=== PATIENT | male | born 1980 | race Caucasian/White ===

== ENCOUNTER 2016-10-25 22:20 | Emergency (ER) | payer BC ==
[2016-10-25] MEDS ORDERED: LORazepam 1 MG Tab PO ONE (22:40)
[2016-10-25 22:42] VITALS: BP 158/90
[2016-10-25] MEDS ORDERED: Sodium Chloride 0.9% 1,000 ML IV SCH (22:45)
--- NOTE | 2016-10-25 22:55 | EDM.PDOC ---
ED HPI SEIZURE COMPLAINT - General Chief Complaint: Neurological Problem Stated Complaint: [facility] Time Seen by Provider: 10/25/16 22:43 Source of Information: Reports: Patient History Limitations: Reports: No limitations - History of Present Illness INITIAL COMMENTS - FREE TEXT/NARRATIVE: 36-year-old male presents the ED after suffering a suspect seizure. Patient is currently was residing at a hotel here in [place] where he is doing a training course. He resides normally in [place]. Patient states he went out with friends for a burger and had a beer. On his way back up to his hotel room apparently he collapsed to the floor and suffered a seizure.he was found sitting up against the wall in a stuporous condition speaking due to breech by hotel staff who then summoned 911. He were able to identify that he has a seizure disorder but has not had a seizure for 3 years. He was able to remember his 's cell phone number and they dialed and spoke with herconfirming that he has a seizure disorder that has been well-controlled with medication. Of course the patient has no recollection of what has happened to him. paramedics were summoned at 2133 hours. It's unclear how long he may have seized for. He has a history of seizure disorder with 3 previous seizures. He is currently on oxcarbazepine 900 mg twice daily. Dosage has not been changed for 3 years since his last seizure. He states he's been taking his medication regularly.denies biting his tongue or losing control of his bowel or bladder. As having any pain in his head or neck. No hours signs of trauma. Complete physical exam is normal neuro exam is completely normal as well. Plan routine labs will be performed. He has an IV in place and he will have normal saline at 150 mils per hour. I will give him Ativan 1 mg by mouth to prevent further seizure activity in the next 6-8 hours. Symptom Onset Date: 10/25/16 Symptom Onset Time: 21:30 Timing/Duration: Reports: unsure Event Occurred (Where): other Event (Witnessed/Unwitnessed): unwitnessed (local hotel where he is staying) Severity: moderate Context: Reports: recent ETOH (had one beer with supper tonight.). Denies: new/ change in medications, missed med dose(s), illness, trauma, photo stimulation, activity/exercise, other Pre Event Symptom(s): Reports: no other symptoms Event Symptoms: Reports: confusion, headaches (out), weakness. Denies: incontinence, tongue biting, syncope, chest pain, cough, diaphoresis, fever/ chills, loss of appetite, malaise, nausea/vomiting, rash, shortness of breath, other Post Event Symptoms: Reports: confused (was initially speaking gibberish.), headache (mild head), altered speech, postictal duration: (15-20 minutes) Associated Injuries: Reports: other (no injuries identified) Treatments EGYPTOLOGIST: Reports: Other (see below) (9) - Related Data Allergies/ADRs: Allergies Allergy/AdvReac Type Severity Reaction Status Date / Time Penicillins Allergy Rash Verified 10/25/16 22:34 Home Meds: Home Meds Levothyroxine 175 mcg PO ACBREAKFAST 09/27/16 [History] OXcarbazepine [Oxcarbazepine] 900 mg PO BID 09/27/16 [History] Past Medical History Neurological History: Reports: Seizure Endocrine/Metabolic History: Reports: Hypothyroidism (takes levothyroxine once daily.) Social & Family History - Tobacco Use Smoking Status *Q: Never Smoker Second Hand Smoke Exposure: No - Caffeine Use Caffeine Use: Reports: Coffee, Energy drinks - Recreational Drug Use Recreational Drug Use: No - Living Situation & Occupation Living situation: Reports: Occupation: employed (patient resides is his and family in [place]. Arrived there about the beginning of September.) ED ROS GENERAL - Review of Systems Review Of Systems: See Below Constitutional: Reports: weakness, fatigue. Denies: fever, chills, malaise, night sweats, diaphoresis, decreased appetite, weight loss, weight gain HEENT: Reports: No symptoms Respiratory: Reports: no symptoms Cardiovascular: Reports: No symptoms Endocrine: Reports: fatigue GI/Abdominal: Reports: No symptoms : Reports: no symptoms Musculoskeletal: Reports: no symptoms Skin: Reports: no symptoms Neurological: Reports: confusion (initially he was confused and speaking gibberish which is now cleared. He has normal cognition.), weakness (generalized ) Psychiatric: Reports: No symptoms Hematologic/Lymphatic: Reports: no symptoms Immunologic: Reports: no symptoms - Physical Exam Exam: See Below Exam Limited By: No limitations General Appearance: alert, WD/WN, no apparent distress, other (appears completely normal at the time of my exam.) Eye Exam: bilateral eye: normal inspection, PERRL (pupils are 4 mm) Nose: normal inspection, normal mucosa, no blood Throat/Mouth: Normal inspection, Normal lips, Normal teeth, Normal oropharynx, Other (no evidence of tongue injury.) Head Exam: atraumatic, normocephalic, other (palpable hematomas) Neck: normal inspection ( contusions or lacerations. No localized pain.), supple , non-tender, full range of motion. No: lymphadenopathy (L), lymphadenopathy (R ), thyromegaly Respiratory/Chest: no respiratory distress, lungs clear, normal breath sounds, no accessory muscle use, chest non-tender Cardiovascular: normal peripheral pulses, regular rate, rhythm, no edema, no gallop, no murmur GI/Abdominal: normal bowel sounds, soft, non tender, no organomegaly, no distention, no abnormal bruit (Male) Exam: No hernia, Other (no evidence of incontinence.) Neuro Exam (Abbreviated): alert, oriented, CN II-XII intact, normal cognition, normal gait, normal reflexes, no motor/sensory deficits Back Exam: normal inspection, full range of motion, other (no abrasions or contusions. Has a pustular acne lesion mid upper back. Mild surrounding erythema ). No: CVA tenderness (L), CVA tenderness (R) Extremities: normal inspection, normal range of motion, non-tender, no pedal edema, normal capillary refill Psychiatric: normal affect, normal mood Skin Exam: Warm, Dry, Intact, Normal color, No rash Course - Vital Signs Last Recorded V/S: Last Vital Signs Temp 36.9 C 10/25/16 22:25 Pulse 104 H 10/25/16 22:25 Resp 21 H 10/25/16 22:25 BP 158/90 H 10/25/16 22:25 Pulse Ox 98 10/25/16 22:25 - Orders/Labs/Meds Orders: Active Orders 24 hr Category Date Time Status Sodium Chloride 0.9% [Normal Saline] 1,000 ml Med 10/25/16 22:45 Active IV ASDIRECTED Medication Orders Sodium Chloride (Normal Saline) 1,000 mls @ 150 mls/hr IV ASDIRECTED JUSTO Last Admin: 10/25/16 22:57 Dose: 150 mls/hr Labs: Laboratory Tests 10/25/16 10/25/16 Range/Units 22:55 22:55 WBC 10.22 H (4.23-9.07) K/mm3 RBC 4.94 (4.63-6.08) M/mm3 Hgb 16.0 (13.7-17.5) gm/L Hct 44.8 (40.1-51.0) % MCV 90.7 (79.0-92.2) fl MCH 32.4 H (25.7-32.2) pg MCHC 35.7 H (32.2-35.5) g/dl RDW Std Deviation 40.7 (35.1-43.9) fL Plt Count 230 (163-337) K/mm3 MPV 9.7 (9.4-12.3) fl Neutrophils % (Manual) 87 H (40-60) % Band Neutrophils % 0 (0-10) % Lymphocytes % (Manual) 10 L (20-40) % Atypical Lymphs % 0 % Monocytes % (Manual) 3 (2-10) % Eosinophils % (Manual) 0 L (0.8-7.0) % Basophils % (Manual) 0 L (0.2-1.2) Toxic Granulation 1+ slight Platelet Estimate Adequate Plt Morphology Comment Normal RBC Morph Comment Normal Sodium 138 (136-145) mEq/L Potassium 4.1 (3.5-5.1) mEq/L Chloride 100 (98-107) mEq/L Carbon Dioxide 29 (21-32) mEq/L Anion Gap 13.1 (5-15) BUN 9 (7-18) mg/dL Creatinine 1.1 (0.7-1.3) mg/dL Est Cr Clr Drug Dosing 86.80 mL/min Estimated GFR (MDRD) > 60 (>60) mL/min BUN/Creatinine Ratio 8.2 L (14-18) Glucose 132 H (74-106) mg/dL Calcium 9.4 (8.5-10.1) mg/dL Total Bilirubin 0.3 (0.2-1.0) mg/dL AST 27 (15-37) U/L ALT 55 (16-63) U/L Alkaline Phosphatase 85 (46-116) U/L C-Reactive Protein < 0.2 (<1.0) mg/dL Total Protein 7.7 (6.4-8.2) g/dl Albumin 4.5 (3.4-5.0) g/dl Globulin 3.2 gm/dL Albumin/Globulin Ratio 1.4 (1-2) Meds: Medications Generic Name Dose Route Start Last Admin Trade Name Chiara PRN Reason Stop Dose Admin Sodium Chloride 1,000 mls @ 150 mls/hr 10/25/16 22:45 10/25/16 22:57 Normal Saline IV 150 mls/hr ASDIRECTED JUSTO Administration Discontinued Medications Generic Name Dose Route Start Last Admin Trade Name Chiara PRN Reason Stop Dose Admin Lorazepam 1 mg 10/25/16 22:40 10/25/16 22:54 Ativan PO 10/25/16 22:41 1 mg ONETIME ONE Administration - Radiology Interpretation Free Text/Narrative:: 36-year-old male brought to the ED per ambulance from a local hotel where he is residing. He reports he lives in [place] and is here on training program. Recently relocated to [place] in the beginning of September of this year. His is a nurse in [place]. He has a seizure disorder but has been well controlled with Vioxx carbamazepine 900 mg twice daily for the last several years. Last seizure was about 3 years ago. No triggers obvious on interrogation today he has not missed any sleep. Proximal more stress associated with the course of leaving home of course. One beer tonight should not cause any issues. Takes only thyroid supplement medication. He reports he has not missed any doses of his anticonvulsant medications. Outwardly he is alert oriented. Paramedics indicate that his cognition improved en route to the hospital. He was initially confused and weak and speaking gibberish but cognitive function has returned completely to normal. He states he feels like he usually does after he has a seizure. There was no vomiting on scene. Complete head to toe examination shows no overt signs of any trauma particularly to the head or neck. Plan normal saline at 150 mils per hour. Routine labs will be obtained to make sure there is no doubt metabolic abnormality such as hyponatremia that could have caused him to have breakthrough seizure. Do not see a need for CT of head at this time - Re-Assessments/Exams Free Text/Narrative Re-Assessment/Exam: 10/26/16 00:00:labs are back and are all completely normal. He will therefore be discharged home. He did receive 1 mg of Ativan orally to prevent seizure activity next 6-8 hours. Advise this will likely make a bit drowsy. He'll be taking a taxi back to the hotel. At this time I would not change his medication since he has been seizure free for 3 years. Advised ice and to followup with neurology and a neurologist is available in [place] at this time.of course he' ll followup if he has any similar seizure-like activity. Departure - Departure Time of Disposition: 23:53 Disposition: Home, Self-Care 01 Condition: fair Clinical Impression: Breakthrough seizure Referrals: PCP,Not In Area [Primary Care Provider] - Forms: ED Department Discharge Additional Instructions: evaluation in the emergency department tonight do to having a recurrent seizure. Seizure for the most part was unwitnessed. You have no recollection of the seizure itself which is usually the case. This suggests a breakthrough grand mal seizure occurred. There are no signs of significant trauma. No head trauma or neck trauma. You were found in the hallway outside of your will tell room. No tongue biting or loss of bladder or bowel control occurred. You're given Ativan 1 mg by mouth in an effort to prevent any further seizure activity over the next 6-8 hours. Routine labs were collected and they all proved to be completely normal. There were no metabolic abnormalities identified that might have acted as a cause for seizure to occur. Therefore at this time since it's been 3 years since her last seizure I would not adopt for any changes in your medications. Continue oxcarbazepine 900 mg twice daily as per your usual. Suggest follow up with your neurologist when you can. There is a neurologist now available in the [place] area. Of course if any similar activity occurs again in area near future more aggressive investigation would be required and perhaps medication changes. - My Orders Last 24 Hours: My Active Orders 10/25/16 22:45 Sodium Chloride 0.9% [Normal Saline] 1,000 ml IV ASDIRECTED - Assessment/Plan Last 24 Hours: My Active Orders 10/25/16 22:45 Sodium Chloride 0.9% [Normal Saline] 1,000 ml IV ASDIRECTED
== END 2016-10-26 00:30 | disposition home or self-care (01) ==
LOC: JD.ED 22:20
DX: R56.9 Unspecified convulsions (principal); E03.9 Hypothyroidism, unspecified; Z88.0 Allergy status to penicillin
CPT/HCPCS: 36415; 80053; 85025; 86140; 96360; 96361; 99284; A9270; J7040